=== PATIENT | female | born 1985 | race Caucasian/White ===

== ENCOUNTER 2019-01-26 08:47 | Emergency (ER) | payer MEDICAID ==
[~2019-01-26] VITALS: Ht 152.4 cm; Wt 81.9 kg
[~2019-01-26 08:47] MED LIST: PRENATAL VITAMINS
[2019-01-26 08:51] VITALS: BP 164/98; PULSE 88; RESP 20; Ht 152.4 cm; Wt 81.9 kg
[2019-01-26] MEDS ORDERED: DIPHENHYDRAMINE 25 MG CAP PO ONE (10:00)
[2019-01-26] MEDS ORDERED: FAMOTIDINE 20 MG TAB PO ONE (10:00)
[2019-01-26] MEDS ORDERED: METHYLPREDNISOLONE 125 MG INJ IM ONE (10:00)
[2019-01-26] MEDS ORDERED: BEN25 PO (11:29)
[2019-01-26] MEDS ORDERED: PRED20TA PO (11:29)
--- NOTE | 2019-01-26 11:36 | ERD ---
ER Documentation Chief Complaint Chief Complaint sob, bilat eye swelling/irritation x 1 week HPI 33-year-old female patient with no significant past medical history presents to the ED stating that she has bilateral eye itchiness, irritation, swelling that started imminently for 1 week as well as shortness of breath. Denies any tongue or lip swelling. Denies any fever, chills, nausea, vomiting, diarrhea, neck stiffness. Patient notes that she has tried to take honey to avoid any allergies, but feels like it is getting worse. Reports that she is tried taking Zyrtec without any relief. Denies any chest pain, wheezing, abdominal pain, nausea, vomiting, diarrhea. ROS All systems reviewed and are negative except as per history of present illness. Medications Home Meds Active Scripts Prednisone* (Prednisone*) 20 Mg Tab, 40 MG PO DAILY for 4 Days, TAB Prov:BETO HO PA-C 01/26/19 Diphenhydramine Hcl* (Benadryl*) 25 Mg Cap, 25 MG PO Q6, #30 CAP Prov:BETO HO PA-C 01/26/19 Reported Medications [ Vitamins] No Conflict Check 09/08/10 Allergies Allergies: Coded Allergies: No Known Drug Allergy (Verified Allergy, Mild, 09/08/10) PMhx/Soc History of Surgery: No Anesthesia Reaction: No Hx Neurological Disorder: No Hx Respiratory Disorders: No Hx Cardiac Disorders: No Hx Psychiatric Problems: No Hx Miscellaneous Medical Probl: No Hx Alcohol Use: No Hx Substance Use: No Hx Tobacco Use: No Smoking Status: Never smoker FmHx Family History: No diabetes, No coronary disease Physical Exam Vitals Vital Signs Date Temp Pulse Resp B/P (MAP) Pulse Ox O2 O2 Flow FiO2 Time Delivery Rate 01/26/19 98.0 88 20 164/98 98 08:51 (120) Physical Exam Const: Sal-[id number], well-nourished. In no acute distress. Head: Atraumatic, normocephalic Eyes: Normal Conjunctiva without injection. No purulent discharge. PERRL. EOMI. Slight edema surrounding the bilateral periorbital structures. No erythema or warmth to touch. Lacrimation noted. ENT: Normal external ear. Ear canal without erythema. Tympanic membrane pearly mares without effusion or bulging. Nasal canal clear with normal turbinates. Moist oropharynx without tonsillar exudates. Rhinorrhea noted. Non- erythematous pharynx. Uvula midline. No drooling. No trismus. No angioedema noted. Neck: Full range of motion. No meningismus. No cervical lymphadenopathy. Resp: Clear to auscultation bilaterally. No wheezing, rhonchi, rales, or crackles. No accessory muscle use. No retractions. Cardio: Regular rate and rhythm. No murmurs, rubs or gallops. Abd: Soft, non tender, non distended. Normal bowel sounds. No palpable masses. No rebound tenderness. No guarding. Skin: No petechiae or rashes. Back: No midline tenderness. No CVA tenderness. Ext: No cyanosis, or edema. Neur: Awake and alert. Psych: Normal Mood and Affect Results 24 hrs Laboratory Tests Test 01/26/19 10:34 POC Beta HCG, Qualitative NEGATIVE Current Medications Medications Dose Sig/Daniela Start Time Status Last (Trade) Ordered Route PRN Stop Time Admin Dose Reason Admin 125 mg ONCE ONCE 01/26/19 DC 01/26/19 Methylprednis IM 10:00 10:08 olone Sodium 01/26/19 10:01 Succinate (Solu-Medrol) 25 mg ONCE ONCE 01/26/19 DC 01/26/19 Diphenhydrami PO 10:00 10:07 ne HCl 01/26/19 10:01 (Benadryl) Famotidine 20 mg ONCE ONCE 01/26/19 DC 01/26/19 (Pepcid) PO 10:00 10:07 01/26/19 10:01 Procedures/MDM 33-year-old female patient with no significant past medical history presents to ED complaining of bilateral eye itchiness, swelling, feeling like she is short of breath after trying honey to help with her allergies. Patient is afebrile and nontoxic-appearing. Patient's blood pressure is 164/98. Blood Pressure Assessment: Patient's blood pressure was elevated (>120/80) but appears stable without evidence of hypertension emergency or urgency. The patient was counseled about the risks of hypertension and urged to pursue outpatient monitoring and therapy within a week with their primary care physician. This patient presents to the ED with symptoms consistent with differentials consistent with allergic reaction versus allergic rhinitis. Patient was given Solu-Medrol 125 mg IM, famotidine 20 mg, Benadryl 5 mg p.o. here in the ED with improvement of her symptoms. Patient's physical exam include lungs which were clear to auscultation and a normal pulse oximetry. There is a low suspicion for anaphylaxis, pneumonia, pneumothorax, mononucleosis, pulmonary embolism, epiglottitis, otitis media, otitis externa, viral/strep pharyngitis, sinusitis, myocarditis, pericarditis, endocarditis, peritonsillar abscess, mastoiditis, retropharyngeal abscess, meningitis, sepsis, acute abdomen or other emergent conditions. Low suspicion for ruptured globe, retinal detachment, orbital cellulitis, acute angle closure glaucoma, deep space infection, iritis, traumatic hyphema, conjunctivitis, subconjunctival hemorrhage, corneal abrasion, corneal ulcer, pterygium, hypopyon, blepharitis, hordeolum, chalazion, or other emergent conditions. Diagnosis: Allergic reaction, Allergic rhinitis Discharge medications: Follow up with primary care physician in 1-2 days for allergy testing. Instructed patient to return to the ED sooner for any worsening symptoms. Patient's questions were answered. Patient is hemodynamically stable. Patient understood and agreed with discharge plan. Patient discharged stable. Disclaimer: Inadvertent spelling and grammatical errors are likely due to EHR/dictation software use and do not reflect on the overall quality of patient care. Also, please note that the electronic time recorded on this note does not necessarily reflect the actual time of the patient encounter. Departure Diagnosis: Primary Impression: Allergic reaction Encounter type: initial encounter Qualified Codes: T78.40XA - Allergy, unspecified, initial encounter Additional Impression: Allergic rhinitis Allergic rhinitis trigger: unspecified Allergic rhinitis seasonality: unspecified Qualified Codes: J30.9 - Allergic rhinitis, unspecified Condition: Stable Patient Instructions: Controlling Allergens: Pollen, Allergic Reaction, Other (General), Allergic Rhinitis Ref[facility] Usted se montanez hecho un examen mdico de control que le indica que no est en da condicin que requiera tratamiento urgente en el Departamento de Emergencia. Un estudio ms profundo y el tratamiento de watkins condicin pueden esperar sin ningn riesgo hasta que usted sea atendida/o en el consultorio de watkins mdico o da clnica. Es responsabilidad suya arreglar da vel para el seguimiento del adán. MANEJO DE CONDICIONES NO URGENTES EN EL FUTURO 1) Si usted tiene un mdico de atencin primaria: Usted debera llamar a watkins mdico de atencin primaria antes de venir al departamento de emergencia. Despus de las horas de consultorio, watkins doctor o watkins asociado/a est disponible por telfono. El mdico o enfermero de frankie en el servicio telefnico puede asesorarle por shabnam medio para atender el problema, o adán contrario se puede programar da vel. 2) Si usted no tiene un mdico de atencin primaria: Llame al mdico o clnica de referencia que aparece abajo braulio las horas de consultorio para hacer da vel para que le vean. CLINICAS: [facility] [phone] [facility] [phone] [address] [facility] [phone] [address] [facility] [facility] [phone] [address] [facility] [place] [id number] [phone] [facility] [phone] [facility] () Usted se montanez hecho un examen mdico de control que le indica que no est en da condicin que requiera tratamiento urgente en el Departamento de Emergencia. Un estudio ms profundo y el tratamiento de watkins condicin pueden esperar sin ningn riesgo hasta que usted sea atendida/o en el consultorio de watkins mdico o da clnica. Es responsabilidad suya arreglar da vel para el seguimiento del adán. MANEJO DE CONDICIONES NO URGENTES EN EL FUTURO 1) Si usted tiene un mdico de atencin primaria: Usted debera llamar a watkins mdico de atencin primaria antes de venir al departamento de emergencia. Despus de las horas de consultorio, watkins doctor o watkins asociado/a est disponible por telfono. El mdico o enfermero de frankie en el servicio telefnico puede asesorarle por shabnam medio para atender el problema, o adán contrario se puede programar da vel. 2) Si usted no tiene un mdico de atencin primaria: Llame al mdico o condado institucions de referencia que aparece abajo braulio las horas de consultorio para hacer da vel para que le vean. SI USTED NO PUEDE PAGAR PARA TAMARA UN MEDICO puede ir a: [facility] [address] [place] [address] [facility] [address] [place] [address] [facility] [address] [place] [address] PARA HEVER [facility] [address] [place], [place] [id number] Additional Instructions: Llame al doctor MAANA y estella da VEL PARA DENTRO DE 2-3 VELASQUEZ.Dgale a la secretaria que nosotros le instruimos hacer esta vel.Avise o llame si watkins condicin se empeora antes de la vel. Regresa aqui si peor o no mejor. La medicina que se le recet puede causarle sueo.NO DEBE MANEJAR NI OPERAR MAQUINARIAS PELIGROSAS mientras esta tomando esta medicina! BETO HO PA-C Jan 26, 2019 11:36
== END 2019-01-26 11:46 | disposition home or self-care (01) ==
LOC: FTE 08:47
DX: J30.9 Allergic rhinitis, unspecified (principal)
CPT/HCPCS: 81025; 96372; J2930; Z7502; Z7610